=== PATIENT | female | born 1990 | race Caucasian/White ===

== ENCOUNTER 2020-01-21 11:03 | Emergency (ER) | payer BC, SELFPAY ==
[~2020-01-21] VITALS: Ht 160 cm; Wt 88.6 kg
[2020-01-21 11:21] VITALS: BP 152/99
== END 2020-01-21 12:52 | disposition home or self-care (01) ==
LOC: ER 11:04
DX: J06.9 Acute upper respiratory infection, unspecified (principal); Z20.828 Contact with and (suspected) exposure to other viral communicable diseases
CPT/HCPCS: 36415; 99283; U0003